=== PATIENT | male | born 1970 | race Asian ===

== ENCOUNTER 2019-07-09 10:31 | Day surgery (SDC) | payer OTHER ==
[~2019-07-09] VITALS: Ht 177.8 cm; Wt 81.3 kg
[2019-07-09] MEDS ORDERED: LACTATED RINGERS 1,000 ML IV SCH (10:50)
[2019-07-09 10:55] VITALS: BP 124/82
[2019-07-09] MEDS ORDERED: BACITRACIN OINT 500U/GM, 15 GM ONE (10:57)
[2019-07-09] MEDS ORDERED: LIDOCAINE 1%-EPI 1:100K, 20ML ONE (10:57)
[2019-07-09] MEDS ORDERED: NONE PER PT (11:04)
[2019-07-09] MEDS ORDERED: SUCCINYLCHOLINE 20 MG/ML, 10ML ONE (11:25)
[2019-07-09] MEDS ORDERED: FENTANYL PF 100 MCG/2ML ONE ×2 (11:25→12:01)
[2019-07-09] MEDS ORDERED: PROPOFOL 10 MG/ML, 20ML ONE (11:25)
[2019-07-09] MEDS ORDERED: CEFAZOLIN 1,000 MG ONE (11:25)
[2019-07-09] MEDS ORDERED: GLYCOPYRROLATE 0.2MG/1ML, 5ML ONE ×2 (11:25→12:10)
[2019-07-09] MEDS ORDERED: DEXAMETHASONE 4 MG/ML, 1ML ONE (11:25)
[2019-07-09] MEDS ORDERED: MIDAZOLAM 1 MG/ML, 2ML ONE (11:25)
[2019-07-09] MEDS ORDERED: NEOSTIGMINE 1 MG/ML, 10ML ONE (11:25)
[2019-07-09] MEDS ORDERED: ROCURONIUM 10MG/ML,5ML ONE (11:25)
[2019-07-09] MEDS ORDERED: ONDANSETRON 2MG/ML, 2ML ONE (11:25)
[2019-07-09] MEDS ORDERED: KETOROLAC 30 MG/1 ML ONE (11:55)
[2019-07-09] MEDS ORDERED: EPHEDRINE 50 MG/ML, 1ML IVPush PRN (12:00)
[2019-07-09] MEDS ORDERED: MEPERIDINE/PF 25MG/ML,1ML IVPush PRN (12:00)
[2019-07-09] MEDS ORDERED: ONDANSETRON 2MG/ML, 2ML IV PRN (12:00)
[2019-07-09] MEDS ORDERED: PROMETHAZINE 25 MG/ML, 1ML IV PRN (12:00)
[2019-07-09] MEDS ORDERED: hydrALAzine 20 MG/ML, 1ML IV PRN (12:00)
[2019-07-09] MEDS ORDERED: HYDROcodone/APAP 7.5-325MG/15ML UDC PO PRN (12:00)
[2019-07-09] MEDS ORDERED: LABETALOL 5MG/ML, 20ML IV PRN (12:00)
[2019-07-09] MEDS ORDERED: FENTANYL PF 100 MCG/2ML IV PRN (12:00)
[2019-07-09] MEDS ORDERED: HYDROmorphone 2 MG/ML, 1ML IVPush PRN (12:00)
[2019-07-09] MEDS ORDERED: LIDOCAINE 1%-EPI 1:100K, 20ML INFIL ONE (12:09)
== END 2019-07-09 14:25 | disposition home or self-care (01) ==
LOC: OUT 10:31
PROVIDERS: ATTEND Otolaryngology Facial Plastic Surgery
DX: D17.0 Benign lipomatous neoplasm of skin and subcutaneous tissue of head, face and neck (principal); Z98.890 Other specified postprocedural states
CPT/HCPCS: 21556; 88304; J0330; J0690; J1100; J1885; J2250; J2405; J2704; J3010; J3490; J7120; 88305; J2710